=== PATIENT | female | born 1960 | race Caucasian/White ===

== ENCOUNTER 2017-03-11 16:43 | Observation (INO) | payer OTHER ==
[~2017-03-11] VITALS: Ht 160 cm; Wt 90.0 kg
[2017-03-11 16:45] VITALS: BP 149/90; PULSE 72; RESP 16; TEMP 97.5; O2SAT 98
[2017-03-11 17:31] LABS: BASOPHIL # 0.1 TH/MM3 (0-0.2); BASOPHIL % 0.7 % (0.0-2.0); EOSINOPHIL # 0.1 TH/MM3 (0-0.4); EOSINOPHIL % 0.8 % (0.0-4.0); HEMATOCRIT 39.9 % (35.0-46.0); HEMO FLAGS DIFF FINAL; LYMPHOCYTE # 2.7 TH/MM3 (1.0-4.8); MEAN CORPUSCULAR HEMOGLOBIN 29.5 PG (27.0-34.0); MEAN CORPUSCULAR HGB CONC 34.6 % (32.0-36.0); MONO % 6.9 % (0.0-8.0); NEUT % 59.6 % (16.0-70.0); PLATELET COUNT 247 TH/MM3 (150-450); WHITE BLOOD COUNT 8.3 TH/MM3 (4.0-11.0)
--- NOTE | 2017-03-11 17:33 | RADRPT ---
EXAM DATE/TIME: 03/11/2017 17:23 [place] COMPARISON: No previous studies available for comparison. INDICATIONS : Chest pain. MEDICAL HISTORY : None. SURGICAL HISTORY : None. ENCOUNTER: Initial ACUITY: 1 day PAIN SCORE: 0/10 LOCATION: Bilateral chest FINDINGS: A single view of the chest demonstrates the lungs to be symmetrically aerated without evidence of mas s, infiltrate or effusion. The cardiomediastinal contours are unremarkable. Osseous structures are intact. CONCLUSION: Normal examination. Meng Horowitz MD on March 11, 2017 at 17:31 Board Certified Radiologist. This report was verified electronically.
[2017-03-11 17:48] LABS: ANION GAP 7 MEQ/L (5-15); BICARBONATE 26.5 MEQ/L (21.0-32.0); BLOOD UREA NITROGEN 18 MG/DL (7-18); CHLORIDE 106 MEQ/L (98-107); GLOMERULAR FILTRATION RATE 59 ML/MIN (>89); POTASSIUM 3.4 MEQ/L (3.5-5.1); SODIUM (NA) 139 MEQ/L (136-145)
[2017-03-11 17:53] LABS: CREATINE KINASE 60 U/L (26-192)
[2017-03-11 19:14] VITALS: BP 151/67; PULSE 56; RESP 16; O2SAT 100
[2017-03-11 19:15] VITALS: RESP 17; O2SAT 100
--- NOTE | 2017-03-11 19:22 | PD ---
HPI Chief Complaint: Chest Pain Time Seen by Provider: 19:09 Travel History International Travel<30 days: No Contact w/Intl Traveler<30days: No Traveled to known affect area: No History of Present Illness HPI This is a 56-year-old female who has a history of hypertension, 39-yaio-onle smoking history and a father who had an MD in his 50s who presents to the emergency department with chest discomfort. She says she's had pressure in the left side of her chest underneath her breast intermittently for 2 weeks, worsening, worse with exertion improved with rest. She says she always feels short of breath and sweaty. She denies any nausea. She had a stress test about 7 years ago. She saw her primary care physician earlier today who thought her EKG looked abnormal and told her to come to the emergency department. She denies any recent long trips or swelling in her legs. PFSH Past Medical History Arthritis: No Blood Disorders: No Heart Rhythm Problems: No Cancer: No Cardiovascular Problems: Yes High Cholesterol: Yes Chemotherapy: No Chest Pain: Yes Congestive Heart Failure: No Cerebrovascular Accident: No Diminished Hearing: No Endocrine: No Gastrointestinal Disorders: Yes GERD: Yes Genitourinary: No Headaches: No Hepatitis: No Hiatal Hernia: No Hypertension: Yes Immune Disorder: No Musculoskeletal: Yes Neurologic: No Psychiatric: No Respiratory: No Myocardial Infarction: No Radiation Therapy: No Seizures: No Ulcer: No ?: Not Past Surgical History Abdominal Surgery: No AICD: No Cardiac Surgery: No Ear Surgery: No Endocrine Surgery: No Eye Surgery: No Genitourinary Surgery: No Gynecologic Surgery: No Joint Replacement: No Neurologic Surgery: Yes Oral Surgery: No Pacemaker: No Thoracic Surgery: No Other Surgery: Yes Social History Alcohol Use: Yes (rare) Tobacco Use: Yes (quit) Substance Use: No Allergies-Medications (Allergen,Severity, Reaction): Coded Allergies: Aspirin (Verified Allergy, Severe, Anaphylaxis, 03/11/17) Morphine (Verified Allergy, Severe, Itching, 03/11/17) Sulfa (Verified Allergy, Severe, Anaphylaxis, 03/11/17) Reported Meds & Prescriptions Reported Meds & Active Scripts Active Reported Enalapril (Enalapril Maleate) 10 Mg Tab 10 Mg PO DAILY Hydrochlorothiazide 25 Mg Tab 25 Mg PO DAILY Atenolol 100 Mg Tab 100 Mg PO DAILY Review of Systems Except as stated in HPI: all other systems reviewed are Neg Physical Exam Narrative GENERAL:Well appearing, no acute distress SKIN: Focused skin assessment warm and dry. HEAD: Atraumatic. Normocephalic. EYES: Pupils equal and round. No injection or drainage. ENT: Moist mucous membranes NECK: Trachea midline. CARDIOVASCULAR: Regular rate and rhythm. No murmur appreciated. RESPIRATORY: Clear to auscultation. Breath sounds equal bilaterally. GASTROINTESTINAL: Abdomen soft, non-tender, nondistended. MUSCULOSKELETAL: No obvious deformities. NEUROLOGICAL: Awake and alert. No obvious cranial nerve deficits. Moving all extremities. PSYCHIATRIC: Appropriate mood and affect; insight and judgment normal. Data Data Last Documented VS Vital Signs Date Time Temp Pulse Resp B/P Pulse Ox O2 Delivery O2 Flow Rate FiO2 03/11/17 19:15 17 100 03/11/17 19:14 56 151/67 Room Air 03/11/17 16:45 97.5 Orders Electrocardiogram (03/11/17 16:58) Complete Blood Count With Diff (03/11/17 16:58) Basic Metabolic Panel (Bmp) (03/11/17 16:58) Ckmb (Isoenzyme) Profile (03/11/17 16:58) Troponin I (03/11/17 16:58) Chest, Single Ap (03/11/17 16:58) Iv Access Insert/Monitor (03/11/17 16:58) Ecg Monitoring (03/11/17 16:58) Oxygen Administration (03/11/17 16:58) Oximetry (03/11/17 16:58) Clopidogrel (Plavix) (03/11/17 19:30) Admit Order (Ed Use Only) (03/11/17 ) Labs Laboratory Tests Test 03/11/17 17:18 White Blood Count 8.3 TH/MM3 Red Blood Count 4.70 MIL/MM3 Hemoglobin 13.8 GM/DL Hematocrit 39.9 % Mean Corpuscular Volume 85.0 FL Mean Corpuscular Hemoglobin 29.5 PG Mean Corpuscular Hemoglobin 34.6 % Concent Red Cell Distribution Width 13.0 % Platelet Count 247 TH/MM3 Mean Platelet Volume 7.8 FL Neutrophils (%) (Auto) 59.6 % Lymphocytes (%) (Auto) 32.0 % Monocytes (%) (Auto) 6.9 % Eosinophils (%) (Auto) 0.8 % Basophils (%) (Auto) 0.7 % Neutrophils # (Auto) 5.0 TH/MM3 Lymphocytes # (Auto) 2.7 TH/MM3 Monocytes # (Auto) 0.6 TH/MM3 Eosinophils # (Auto) 0.1 TH/MM3 Basophils # (Auto) 0.1 TH/MM3 CBC Comment DIFF FINAL Differential Comment Sodium Level 139 MEQ/L Potassium Level 3.4 MEQ/L Chloride Level 106 MEQ/L Carbon Dioxide Level 26.5 MEQ/L Anion Gap 7 MEQ/L Blood Urea Nitrogen 18 MG/DL Creatinine 0.97 MG/DL Estimat Glomerular Filtration 59 ML/MIN Rate Random Glucose 97 MG/DL Calcium Level 9.6 MG/DL Total Creatine Kinase 60 U/L Troponin I LESS THAN 0.02 NG/ML MDM Medical Decision Making Medical Screen Exam Complete: Yes Emergency Medical Condition: Yes Interpretation(s) ekg: reassuring No leukocytosis Mild hypokalemia Troponin is negative Chest x-rays reassuring Differential Diagnosis Acute coronary syndrome, pulmonary embolism, pneumonia, costochondritis Narrative Course This is a 56-year-old female who presents to the emergency department with several weeks of chest discomfort. She has a history of hypertension, smoking and her father had a heart attack in his 50s. She hasn't had a stress test in 7 years. Here she was placed on a monitor and an IV was established. She is allergic to aspirin so she was given a low dose of Plavix. Labs are obtained which are reassuring including a normal troponin. I think patient is appropriate for the chest pain center for serial cardiac enzymes and possible risk stratification. I don't suspect pulmonary embolism and she has normal vital signs, and has no risk factors. Diagnosis Primary Impression: Chest pain Qualified Code: R07.9 - Chest pain, unspecified type Admitting Information Admitting Physician Requests: Lety Garza MD Mar 11, 2017 19:22
[2017-03-11] MEDS ORDERED: ENAL10TA PO (19:24)
[2017-03-11] MEDS ORDERED: ATEN100T PO (19:24)
[2017-03-11] MEDS ORDERED: HYDR25TA5 PO (19:24)
[2017-03-11] MEDS ORDERED: CLOPIDOGREL 75 MG TAB PO ONE (19:30)
[2017-03-11] MEDS ORDERED: SODIUM CHLORIDE 0.9% FLUSH 10 ML FLUSH IV FLUSH PRN (20:30)
[2017-03-11 21:00] VITALS: O2SAT 100
[2017-03-11 22:11] VITALS: BP 117/59; PULSE 53; RESP 18; TEMP 98.4; O2SAT 100
[2017-03-11 23:10] VITALS: PULSE 63
[2017-03-11] MEDS: SODIUM CHLORIDE 0.9% FLUSH 10 ML FLUSH IV FLUSH SCH (23:12)
[2017-03-12] VITALS: BP 129/74; PULSE 68; RESP 18; TEMP 97.7; O2SAT 98
[2017-03-12 03:57] VITALS: PULSE 67
[2017-03-12 05:01] VITALS: BP 109/53; PULSE 68; RESP 22; TEMP 98.1; O2SAT 98
[2017-03-12 07:57] VITALS: BP 125/71; PULSE 63; RESP 21; TEMP 98.4; O2SAT 97
--- NOTE | 2017-03-12 09:10 | HHI.HP ---
[facility] Primary Care Physician Hasmukh Lentz M.D. Chief Complaint Chest pain History of Present Illness This is a 56-year-old female that presents to ED via private vehicle with a complaint of essentially constant central/left-sided chest pressure a waxes and wanes however she states it resolved while resting in the chest pain center 2: 00 this morning. Mildly short of breath and diaphoretic with the symptoms. No nausea. Has not had symptoms like this before. Found nothing to worsen her symptoms. States activity not change her symptoms. Denies recent illness. Denies fevers or chills. Review of Systems General: Patient denies fevers, chills recent, and recent travel HEENT: Patient denies headache, sore throat, difficulty swallowing. Cardiovascular: Has the chest discomfort as mentioned above. Denies sensation of heart beating rapidly or irregularly. No syncope. She was diaphoretic. Respiratory: She was mildly short of breath. Denies inspirational chest discomfort. Denies coughing wheezing or hemoptysis. GI: Patient denies nausea, vomiting, diarrhea, abdominal pain, bloody stools. Musculoskeletal: Patient denies joint pain or edema. Denies calf pain or edema. Neurovascular: Patient denies numbness, tingling, weakness in extremities. Denies headache. Endocrine: Denies polyuria and polydipsia. Hematologic: Denies easy bruising. Skin: Denies rash or itching. Past Family Social History Allergies: Coded Allergies: Aspirin (Verified Allergy, Severe, Anaphylaxis, 03/11/17) Morphine (Verified Allergy, Severe, Itching, 03/11/17) Sulfa (Verified Allergy, Severe, Anaphylaxis, 03/11/17) Past Medical History Hypertension. Denies hyperlipidemia diabetes and known CAD. Past Surgical History Noncontributory. Reported Medications Reported Meds & Active Scripts Active Reported Enalapril (Enalapril Maleate) 10 Mg Tab 10 Mg PO DAILY Hydrochlorothiazide 25 Mg Tab 25 Mg PO DAILY Atenolol 100 Mg Tab 100 Mg PO DAILY Active Ordered Medications Current Medications Medications (Trade) Dose Ordered Sig/Ovidio Route Start Time Stop Time Status Last Admin (NS Flush) 2 ml UNSCH PRN IV FLUSH 03/11/17 20:30 (NS Flush) 2 ml BID IV FLUSH 03/11/17 21:00 03/11/17 23:12 Family History She states that her father had an MT in his 50s. He is currently age 83. Social History Patient does not smoke. Rarely has alcohol. Denies illicit drugs. Physical Exam Vital Signs Vital Signs Date Time Temp Pulse Resp B/P Pulse Ox O2 Delivery O2 Flow Rate FiO2 03/12/17 07:57 98.4 63 21 125/71 97 03/12/17 05:01 98.1 68 22 109/53 98 03/12/17 03:57 67 03/12/17 00:00 97.7 68 18 129/74 98 03/11/17 23:10 63 03/11/17 22:11 98.4 53 18 117/59 100 03/11/17 21:00 100 03/11/17 19:15 17 100 03/11/17 19:14 56 16 151/67 100 Room Air 03/11/17 19:04 53 16 99 Room Air 03/11/17 16:45 97.5 72 16 149/90 98 Room Air Physical Exam GENERAL: This is a well-nourished, well-developed patient, in no apparent distress. Patient speaks in clear complete sentences. Patient is pleasant. HEENT: Head is atraumatic and normocephalic. Neck is supple without lymphadenopathy and trachea is midline. No JVD or carotid bruits. CARDIOVASCULAR: Regular rate and rhythm without murmurs, gallops, or rubs. RESPIRATORY: Clear to auscultation. Breath sounds equal bilaterally. No wheezes , rales, or rhonchi. Chest wall is nontender. No use of accessory muscles. GASTROINTESTINAL: Abdomen is nontender, nondistended. Abdomen soft. No obvious pulsatile mass or bruit. No CVA tenderness. Strong femoral pulses bilaterally. Normal bowel sounds in all quadrants. MUSCULOSKELETAL: Patient is moving upper and lower extremities freely. No calf tenderness or edema, no Homans sign. Strong pulses in upper and lower extremities. NEUROLOGICAL: Patient is alert and oriented. Cranial nerves 2-12 are grossly intact. No focal deficits and speech is clear. SKIN: No rash and turgor is normal. Laboratory Laboratory Tests Test 03/11/17 03/11/17 03/11/17 17:18 20:20 23:20 White Blood Count 8.3 Red Blood Count 4.70 Hemoglobin 13.8 Hematocrit 39.9 Mean Corpuscular Volume 85.0 Mean Corpuscular Hemoglobin 29.5 Mean Corpuscular Hemoglobin 34.6 Concent Red Cell Distribution Width 13.0 Platelet Count 247 Mean Platelet Volume 7.8 Neutrophils (%) (Auto) 59.6 Lymphocytes (%) (Auto) 32.0 Monocytes (%) (Auto) 6.9 Eosinophils (%) (Auto) 0.8 Basophils (%) (Auto) 0.7 Neutrophils # (Auto) 5.0 Lymphocytes # (Auto) 2.7 Monocytes # (Auto) 0.6 Eosinophils # (Auto) 0.1 Basophils # (Auto) 0.1 CBC Comment DIFF FINAL Differential Comment Sodium Level 139 Potassium Level 3.4 Chloride Level 106 Carbon Dioxide Level 26.5 Anion Gap 7 Blood Urea Nitrogen 18 Creatinine 0.97 Estimat Glomerular Filtration 59 Rate Random Glucose 97 Calcium Level 9.6 Total Creatine Kinase 60 Troponin I LESS THAN 0.02 LESS THAN 0.02 LESS THAN 0.02 Result Diagram: 03/11/17 1718 03/11/17 1718 Imaging Last 48 hours Impressions Chest X-Ray 03/11/17 1658 Signed Impressions: Service Date/Time: Saturday, March 11, 2017 17:23 - CONCLUSION: Normal examination. Meng Horowitz MD Course EKGs have been sinus rhythm to sinus bradycardia without significant ST segment depressions or elevations. Assessment and Plan Assessment and Plan * Chest pain: Patient has had serial cardiac enzymes and EKGs for ruling out purposes. She has been seen by Dr. Gen Porter of cardiology in the chest pain center. We will get a TSH and also a David protocol ETT. She'll be discharged home if her stress test is nonischemic. She should follow-up with her primary care physician. * Hypertension: Continue current medication. Patient is stable at this time. She is agreeable to this plan. Ethan Clancy Mar 12, 2017 09:10
[2017-03-12 09:15] VITALS: PULSE 53
[2017-03-12] MEDS: SODIUM CHLORIDE 0.9% FLUSH 10 ML FLUSH IV FLUSH SCH (09:15)
--- NOTE | 2017-03-12 10:37 | HHI.DCPOC ---
Discharge Care Plan Diagnosis: (1) Chest pain Goals to Promote Your Health * To prevent worsening of your condition and complications * To maintain your health at the optimal level Directions to Meet Your Goals Take your medications as prescribed Follow your dietary instruction Follow activity as directed Keep your appointments as scheduled Take your immunizations and boosters as scheduled If your symptoms worsen call your PCP, if no PCP go to Urgent Care Center or Emergency Room Smoking is Dangerous to Your Health. Avoid second hand smoke Call the 24-hour hour crisis hotline for domestic abuse at Ethan Clancy Mar 12, 2017 10:37
--- NOTE | 2017-03-12 16:13 | EKG ---
Date Performed: 03/11/2017 Time Performed: 23:21:10 PTAGE: 56 years EKG: SINUS BRADYCARDIA LOW QRS VOLTAGE IN PRECORDIAL LEADS BORDERLINE ECG PREVIOUS TRACING : 03/11/2017 23.20 Since previous tracing, no significant change noted DOCTOR: Gen Porter Interpretating Date/Time 03/12/2017 16:13:25
--- NOTE | 2017-03-12 16:14 | EKG ---
Date Performed: 03/11/2017 Time Performed: 20:36:57 PTAGE: 56 years EKG: SINUS BRADYCARDIA BORDERLINE ECG PREVIOUS TRACING : 03/11/2017 17.08 Since previous tracing, no significant change noted DOCTOR: Gen Porter Interpretating Date/Time 03/12/2017 16:13:53
--- NOTE | 2017-03-12 16:17 | EKG ---
Date Performed: 03/11/2017 Time Performed: 17:08:38 PTAGE: 56 years EKG: Sinus rhythm WITH OCCASIONAL VENTRICULAR PREMATURE COMPLEXES BORDERLINE ECG PREVIOUS TRACING : 07/23/2005 22.04 Since previous tracing, no significant change noted DOCTOR: Gen Porter Interpretating Date/Time 03/12/2017 16:15:41
--- NOTE | 2017-03-12 16:19 | TR ---
Date Performed: 03/12/2017 Time Performed: 09:26:41 DOCTOR: Gen Porter DRUG LIST: CLINICAL HISTORY: CHEST PAIN REASON FOR TEST: REASON FOR ENDING: OBSERVATION: CONCLUSION: YARY PROTOCOL. NO CP. TEST STOPPED AFTER REACHING GOAL HR SECONDARY TO SOB AND LEG FATIGUE.Maximum WC=099 % Max HR Achieved=88.0% Maximum EA=349/80 Total Exercise Time=5:31 COMMENTS: Patient exercised using the Yary protocol. No electrocardiographic changes were seen to suggest ischemia. Hemodynamic response to exercise was normal. No significant arrhythmia was prese nt.
== END 2017-03-12 11:09 | disposition home or self-care (01) ==
LOC: NEPE 16:43 → NEDA 19:21 → NEPGCP 22:09
PROVIDERS: ADMIT Internal Medicine Interventional Cardiology; ATTEND Internal Medicine Interventional Cardiology
DX: R07.89 Other chest pain (principal); R06.02 Shortness of breath; R61 Generalized hyperhidrosis; E87.6 Hypokalemia; R00.1 Bradycardia, unspecified; I10 Essential (primary) hypertension; E78.00 Pure hypercholesterolemia, unspecified; K21.9 Gastro-esophageal reflux disease without esophagitis; Z87.891 Personal history of nicotine dependence; Z79.899 Other long term (current) drug therapy; Z82.49 Family history of ischemic heart disease and other diseases of the circulatory system
CPT/HCPCS: 71010; 80048; 82550; 84443; 84484; 85025; 93005; 93017; 99285; G0378